=== PATIENT | male | born 1960 | race Caucasian/White ===

== ENCOUNTER 2017-08-15 12:27 | Inpatient (IN) | payer OTHER ==
[~2017-08-15] VITALS: Ht 172.7 cm; Wt 85.0 kg
[~2017-08-15 12:27] MED LIST: AMARYL4 MG PO; AMBIEN 10 MG TA10 MG PO; AMBIEN 5 MG TABL5 M1 PO; AUGMENTIN 875875 MG PO; BENZONATATE200 MG PO; CALCIUM CITRAT1 EA14 PO; CARAFATE 1 GM TA1 G1 GT; COZAAR 50 MG TA50 MG PO; DUONEB 2.5-0.5 M3 ML INH; GLUCOPHAGE1000 MG PO; HUMALOG100 UNIT/2 SQ; IMURAN 50MG TAB50 M1 PO; KLOR-CON 10 ER10 MEQ PO; LEVEMIR SUBQ; LEXAPRO20 MG PO; NEXIUM40 MG PO; PREDNISONE 10 M10 M1 PO; PREDNISONE 10 M10 MG PO; PROMETHAZI6.25 MG/5 PO; PROTONIX 20 MG20 M1 PO; PROTONIX40 M1 PO; SINGULAIR 10 MG10 M1 PO; SYMBICORT160 MCG/4.; TAMIFLU75 MG PO; TRAZODONE HCL100 MG PO; VENTOLIN HFA 1818 GM INH; ZYBAN150 MG PO
[2017-08-15 12:44] VITALS: BP 128/78
[2017-08-15 13:36] LABS: ABSOLUTE MONOCYTES 0.6 thou/uL (0.0-1.2); BASOPHILS 0.9 %; HEMATOCRIT 38.8 % (42.0-52.0); HEMOGLOBIN 13.6 gm/dL (14.0-18.0); MCH 28.2 pg (26.0-34.0); MCHC 35.1 g/dL (28.0-37.0); MCV 80.4 fL (80.0-100.0); MONOCYTES 15.6 %; MPV 10.8 fl. (7.2-11.1); NUCLEATED RBCS 0 /100WBC; PLATELET COUNT* 100 thou/uL (150-400); POLYS 55.5 %; RBC 4.83 mil/uL (4.50-6.00); WBC 3.7 thou/uL (4.0-11.0)
[2017-08-15 13:44] LABS: CALCIUM 8.5 mg/dL (8.5-10.1); CREATININE 1.3 mg/dL (0.6-1.3); POTASSIUM 4.3 mmol/L (3.5-5.1)
[2017-08-15 13:48] LABS: ALBUMIN 3.5 g/dL (3.4-5.0); TOTAL BILIRUBIN 0.8 mg/dL (<0.1-1.0); TOTAL PROTEIN 7.7 g/dL (6.4-8.2)
[2017-08-15 13:50] LABS: INFLUENZA A ANTIGEN None Detected (None Detect); INFLUENZA B ANTIGEN None Detected (None Detect)
[2017-08-15 15:36] LABS: APTT 33.7 Seconds (25.0-31.3); INR 1.2; PROTIME 11.2 Seconds (9.20-11.50)
[2017-08-15 16:32] VITALS: BP 138/78
[2017-08-15 16:33] LABS: URINE BILIRUBIN NEGATIVE (Negative); URINE BLOOD TRACE (Negative); URINE CLARITY CLEAR; URINE COLOR YELLOW; URINE GLUCOSE-RANDOM NEGATIVE (Negative); URINE KETONES TRACE (Negative); URINE LEUKOCYTES-REFLEX NEGATIVE (Negative); URINE NITRITE-REFLEX NEGATIVE (Negative); URINE PROTEIN 1+ (Negative); URINE SPECIFIC GRAVITY <= 1.005 (1.005-1.030); URINE UROBILINOGEN 0.2 E.U./dl (0.2-1.0)
[2017-08-15 17:00] VITALS: BP 159/69
[2017-08-15] MEDS ORDERED: KLOR-CON 1010 MEQ PO (17:44)
[2017-08-15] MEDS ORDERED: CLONAZEPAM 1 MG1 M1 PO (17:44)
[2017-08-15 17:45] VITALS: BP 145/81
[2017-08-15] MEDS ORDERED: WELLBUTRIN SR150 MG PO (17:45)
[2017-08-15] MEDS ORDERED: CELEXA20 MG PO (17:45)
[2017-08-15] MEDS ORDERED: SYMBICORT160 MCG/4. INH (17:46)
[2017-08-15] MEDS ORDERED: TRAMADOL 50 MG50 MG PO (17:47)
[2017-08-15] MEDS ORDERED: ALEVE220 MG PO (17:48)
[2017-08-15] MEDS ORDERED: ZANAFLEX4 MG PO (17:48)
[2017-08-15] MEDS ORDERED: HUMALOG KW100 UNIT/1 SUBQ (17:49)
[2017-08-15] MEDS ORDERED: MUCINEX600 MG PO (17:50)
[2017-08-15] MEDS ORDERED: ATACAND16 MG PO (17:50)
--- NOTE | 2017-08-15 18:30 | NUR ---
PT ADMITTED FROM ED WITH PNA AND GASTROENTERITIS. PT REPORTS FEVER AND CHILLS FOR A WEEK. PT HAS BEEN UNDER TREATMENT FOR COLITIS FROM PRIMARY CARE DOCTOR. PT SOA WITH EXERTION, HX PULMONARY FIBROSIS AND COPD. RESPIRATION EVEN AND UNLABORED AT REST, LUNGS COARSE THROUGHOUT, LOOSE PRODUCTIVE COUGH. O2 SAT MID 90'S RA. SINUS TACH ON MONITOR. HYPERACTIVE BOWEL SOUNDS. PT RECEIVING 3L NS BOLUS AT ADMIT. PT WITH WHOLE BODY TREMORS. PT REPORTS CHILLS. PT ORIENTED TO ROOM, ABLE TO MAKE NEEDS KNOWN. PT UP WITH SBA, UNSTEADY GAIT. CALL LIGHT IN REACH.
[2017-08-15 20:00] VITALS: BP 123/64
[2017-08-15 23:26] VITALS: BP 147/61
--- NOTE | 2017-08-16 03:41 | NUR ---
PT ALERT ORIENTED. BREATH SOUNDS COURSE. ON RA. PT WEARING HOME CPAP. NS AT 100MLS/HR. TELEMETRY SHOWS SR. WILL CONTINUE TO MONITOR.
[2017-08-16 04:00] VITALS: BP 133/76
[2017-08-16 09:30] VITALS: BP 147/66
[2017-08-16 11:00] VITALS: BP 162/71
[2017-08-16 13:40] LABS: ABSOLUTE LYMPHOCYTES 0.7 thou/uL (0.8-5.3); ABSOLUTE MONOCYTES 0.3 thou/uL (0.0-1.2); ABSOLUTE NEUTROPHILS 1.7 thou/uL (1.6-8.1); BASOPHILS 0.6 %; LYMPHOCYTES 26.5 %; MCH 28.5 pg (26.0-34.0); MCHC 35.7 g/dL (28.0-37.0); MCV 79.8 fL (80.0-100.0); NUCLEATED RBCS 0 /100WBC; PLATELET COUNT* 64 thou/uL (150-400); POLYS 60.9 %; RBC 3.89 mil/uL (4.50-6.00); WBC 2.8 thou/uL (4.0-11.0)
[2017-08-16 13:41] LABS: HEMOGLOBIN 11.1 gm/dL (14.0-18.0)
--- NOTE | 2017-08-16 13:43 | NUR ---
ASSUMED PT CARE AT 0700 PT IS ALERT AND ORIENTED X 4 PT IS UP AD ROGER PT IS NOT A FALL RISK, PT DENEIS PAIN OR SOA ON RA, PT IS SR-ST ON THE MONITOR, PT BLOOD PRESSURE ELEVATED TALKED WITH PHYSICIAN WHO RESTARTED HOME MEDS, CALLED PHYSCIAN ABOUT HYDRALAZINE AND ANTIBIOTICS AWAITING CALLBACK, WILL CONTINUE TO MONITOR
[2017-08-16 13:47] LABS: CALCIUM 7.8 mg/dL (8.5-10.1); CREATININE 0.9 mg/dL (0.6-1.3); MAGNESIUM 1.2 mg/dL (1.8-2.4); POTASSIUM 3.8 mmol/L (3.5-5.1)
[2017-08-16 14:12] LABS: ALBUMIN 2.8 g/dL (3.4-5.0); CALCIUM 7.6 mg/dL (8.5-10.1); CREATININE 0.9 mg/dL (0.6-1.3); POTASSIUM 3.9 mmol/L (3.5-5.1); TOTAL BILIRUBIN 0.4 mg/dL (<0.1-1.0); TOTAL PROTEIN 5.9 g/dL (6.4-8.2)
[2017-08-16 16:00] VITALS: BP 146/71
[2017-08-16 20:00] VITALS: BP 150/67
[2017-08-17 00:23] VITALS: BP 152/68
[2017-08-17 04:13] VITALS: BP 132/72
--- NOTE | 2017-08-17 04:52 | NUR ---
PT ALERT ORIENTED. CHILLS AND SHAKING AT TIMES. UP AD ROGER TO BR. TELEMETRY SHOWS SR/ST. ON RA DAYS. CPAP FROM HOME HS. NS AT 80MLS/HR. WILL CONTINUE TO MONITOR.
[2017-08-17 07:50] VITALS: BP 121/67
[2017-08-17 11:46] VITALS: BP 122/62
--- NOTE | 2017-08-17 12:17 | NUR ---
CM ASSESSMENT: Pt is A&O. Resides at home with his . Independent with ADLs. Pt states that he has a cane and wc at home that he can use if needed. Pt uses a home CPAP and o2, provided through [facility]. No hx of HH or SNF. Goal is to return home once medically stable for dc.
--- NOTE | 2017-08-17 15:10 | NUR ---
RECEIVED REPORT AND ASSUMED CARE AT 0730. VSS. CARDIAC MONITOING IN PLACE. PT DENIES ANY COMPLAINTS OF PAIN. ASSESSMENT COMPLETED CHARTED. DISCUSSED PLAN OF CARE WITH PT, VERBALIZED UNDERSTANDING. PT ON RA DURING THE DAY, PT USES C-PAP AT NOC AND WHILE NAPPING. PT UP AD ROGER IN ROOM. BED IN LOWEST POSITION, CALL LIGHT WITHIN REACH. WILL CONTIRNUE TO MONITOR FOR REMAINDER OF THE SHIFT.
--- NOTE | 2017-08-17 15:44 | NUR ---
PT INFORMED TRANSFERING TO [address] [place] [address] ROOM 316. CALLED AND GAVE REPORT TO NURSE ASSUMING CARE. PT BELONGINGS COLLECTED AND MOVED WITH PT TO NEW ROOM.
--- NOTE | 2017-08-17 19:03 | NUR ---
PATIENT TO ROOM 316 THIS AFTERNOON. A/O, DENIES PAIN, ANXIOUS, REPORTS THAT IT IS MOST LIKELY DUE TO CHRONIC STEROID USE. BLOOD SUGAR OF 95, TREATED WITH INSULIN. LOW MAGNESIUM TREATED WTIH ORAL MAGNESIUM. UP AD ROGER, CONT ISO PRECAUTION FOR PENDING C. DIFF, NO BM SINCE TRANSFER, HAT IN TOILET FOR COLLECTION. AGREE WITH PRIOR ASSESSMENT AND DOCUMENTATION.
[2017-08-18 00:14] VITALS: BP 165/76
[2017-08-18 04:54] LABS: HEMATOCRIT 30.7 % (42.0-52.0); HEMOGLOBIN 11.1 gm/dL (14.0-18.0); MCH 28.5 pg (26.0-34.0); MCHC 36.3 g/dL (28.0-37.0); MCV 78.6 fL (80.0-100.0); RBC 3.9 mil/uL (4.50-6.00); RDW-CV 14.1 % (10.5-14.5); WBC 2.3 thou/uL (4.0-11.0)
[2017-08-18 05:21] LABS: CALCIUM 7.9 mg/dL (8.5-10.1); CREATININE 0.9 mg/dL (0.6-1.3); MAGNESIUM 1.4 mg/dL (1.8-2.4); POTASSIUM 4.4 mmol/L (3.5-5.1)
[2017-08-18 08:00] VITALS: BP 126/73
[2017-08-18 15:23] VITALS: BP 117/60
--- NOTE | 2017-08-18 18:32 | NUR ---
RESUMED CARE THIS AM. SARIAH MEDS/CARES WELL, UP AD ROGER, DENIES PAIN. VITAL SIGNS STABLE, EVENING DOSE OF INSULIN HELD DUE TO BLOOD SUGAR OF 71. PROGRESSING WELL TOWARD GOALS, CALL LIGHT IN REACH, C. DIFF STILL "PENDING", ISO CONTINUED, CONT POC.
[2017-08-18 23:21] VITALS: BP 107/59
--- NOTE | 2017-08-19 06:06 | NUR ---
ASSESSMENT COMPLETE. PT SLEPT THROUGH THE NIGHT WITHOUT ANY CONCERNS. PT DENIES PAIN AND N/V. PT IS ON ROOM AIR WITH [place] SATS, HOME CPAP AT . PT HAS IV, SALINE LOCKED. PT HAS STEADY GAIT AND IS UP AD ROGER. CDIFF CAME BACK NEGATIVE. SEE ASSESSMENT AND VITALS FOR OTHER DETAILS. CALL LIGHT WITHIN REACH, WILL CONTINUE PLAN OF CARE
[2017-08-19 07:50] VITALS: BP 142/78
[2017-08-19] MEDS ORDERED: CEFDINIR300 MG PO (11:15)
[2017-08-19] MEDS ORDERED: AZITHROMYCIN500 MG PO (11:15)
[2017-08-19 12:07] VITALS: BP 142/78
--- NOTE | 2017-08-19 12:30 | NUR ---
PATIENT DISCHARGED TO HOME. DISCHARGE PAPERS REVIEWED AND SIGNED. PRESCRIPTIONS AND INFORMATION SHEETS GIVEN. IV REMOVED. PATIENT REQUESTED DISC FOR [facility] FOLLOW-UP, RADIOLOGY SENDING TO THE CLOUD. PATIENT DENIES ANY FURTHER NEEDS. PATIENT TAKEN BY WHEELCHAIR TO EXIT. LEFT WITH .
== END 2017-08-19 12:30 | disposition home or self-care (01) | DRG 871 ==
LOC: M.ERS 12:27 → M.3W 16:03 → M.TBA-ER 16:03 → M.2W 16:03 → M.3W 08-17 15:33
PROVIDERS: Internal Medicine; Nurse Practitioner Family; ADMIT Internal Medicine
DX: A41.9 Sepsis, unspecified organism (principal); J69.0 Pneumonitis due to inhalation of food and vomit; J44.0 Chronic obstructive pulmonary disease with (acute) lower respiratory infection; F17.210 Nicotine dependence, cigarettes, uncomplicated; J84.10 Pulmonary fibrosis, unspecified; K52.9 Noninfective gastroenteritis and colitis, unspecified; K21.9 Gastro-esophageal reflux disease without esophagitis; E11.40 Type 2 diabetes mellitus with diabetic neuropathy, unspecified; Z79.4 Long term (current) use of insulin; Z79.899 Other long term (current) drug therapy; Z91.040 Latex allergy status; Z88.1 Allergy status to other antibiotic agents

== ENCOUNTER 2021-01-17 22:53 | Inpatient (IN) | payer OTHER ==
[~2021-01-17] VITALS: Ht 175.3 cm; Wt 84.6 kg
[~2021-01-17 22:53] MED LIST changes: +ALEVE220 MG PO; +ATACAND16 MG PO; +AZITHROMYCIN500 MG PO; +CEFDINIR300 MG PO; +CELEXA20 MG PO; +CLONAZEPAM 1 MG1 M1 PO; +HUMALOG KW100 UNIT/1 SUBQ; +KLOR-CON 1010 MEQ PO; +LEVEMIR FL100 UNIT/2 SUBQ; -LEVEMIR SUBQ; +MUCINEX600 MG PO; +SYMBICORT160 MCG/4. INH; +TRAMADOL 50 MG50 MG PO; +WELLBUTRIN SR150 MG PO; +ZANAFLEX4 MG PO
[2021-01-17 23:01] VITALS: BP 168/77
[2021-01-17 23:49] LABS: ABSOLUTE LYMPHOCYTES 0.9 thou/uL (0.8-5.3); ABSOLUTE MONOCYTES 0.5 thou/uL (0.0-1.2); ABSOLUTE NEUTROPHILS 3.2 thou/uL (1.6-8.1); BASOPHILS 0.4 %; EOSINOPHILS 0.4 %; HEMATOCRIT 31.8 % (42.0-52.0); HEMOGLOBIN 11.2 gm/dL (14.0-18.0); LYMPHOCYTES 18.6 %; MCH 28.8 pg (26.0-34.0); MCHC 35.4 g/dL (28.0-37.0); MCV 81.3 fL (80.0-100.0); MONOCYTES 11.7 %; MPV 9.6 fl. (7.2-11.1); NUCLEATED RBCS 0 /100WBC; PLATELET COUNT* 98 thou/uL (150-400); POLYS 68.9 %; RBC 3.91 mil/uL (4.50-6.00); WBC 4.7 thou/uL (4.0-11.0)
[2021-01-18 00:02] LABS: INR 1.3; PROTIME 13.5 Seconds (9.20-11.50)
[2021-01-18 00:08] LABS: CALCIUM 7.8 mg/dL (8.5-10.1); CREATININE 1.3 mg/dL (0.6-1.3); POTASSIUM 4.1 mmol/L (3.5-5.1)
[2021-01-18 00:23] LABS: ALBUMIN 3.2 g/dL (3.4-5.0); MAGNESIUM 1.4 mg/dL (1.8-2.4); TOTAL BILIRUBIN 0.9 mg/dL (<0.1-1.0); TOTAL PROTEIN 6.9 g/dL (6.4-8.2)
[2021-01-18 03:10] VITALS: BP 138/70
[2021-01-18 03:14] VITALS: BP 157/72
[2021-01-18] MEDS ORDERED: WARFARIN SODIUM10 MG PO (06:04)
[2021-01-18 08:00] VITALS: BP 162/79
--- NOTE | 2021-01-18 09:45 | EKG ---
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1960 Requested By: Mallory Bangura Order Number: [id number] MD: Bruce Garvey Measurements Intervals [place] Rate: 101 P: 38 IA: 139 QRS: -15 QRSD: 130 T: 50 QT: 377 QTc: 489 Interpretive Statements Sinus tachycardia Right bundle branch block Baseline wander in lead(s) V4 Compared to ECG 10/31/2014 19:23:49 Right bundle-branch block now present Incomplete right bundle-branch block no longer present Electronically Signed On 01-18-2021 9:45:22 CDT by Bruce Garvey [email or web address] <ELECTRONICALLY SIGNED> By: Bruce Garvey MD, [facility] 01/18/21 0945 07 07 Bruce Garvey MD, [facility] /EPI
[2021-01-18 10:48] LABS: HEMOGLOBIN 11.2 gm/dL (14.0-18.0); MCH 28.8 pg (26.0-34.0); MCHC 35.1 g/dL (28.0-37.0); MCV 82.1 fL (80.0-100.0); MPV 9.5 fl. (7.2-11.1); RBC 3.89 mil/uL (4.50-6.00); RDW-CV 14.3 % (10.5-14.5); WBC 2.5 thou/uL (4.0-11.0)
[2021-01-18 10:55] LABS: CALCIUM 7.7 mg/dL (8.5-10.1); CREATININE 1.5 mg/dL (0.6-1.3); POTASSIUM 4.4 mmol/L (3.5-5.1)
[2021-01-18 12:30] VITALS: BP 139/77
[2021-01-18 15:53] VITALS: BP 116/57
[2021-01-18 19:55] VITALS: BP 140/60
[2021-01-19 00:21] VITALS: BP 123/53; BP 151/86
[2021-01-19 04:26] VITALS: BP 126/72
[2021-01-19 05:21] LABS: HEMATOCRIT 26.9 % (42.0-52.0); HEMOGLOBIN 9.7 gm/dL (14.0-18.0); MCH 29.1 pg (26.0-34.0); MCHC 35.9 g/dL (28.0-37.0); MPV 9.9 fl. (7.2-11.1); RBC 3.32 mil/uL (4.50-6.00); RDW-CV 13.7 % (10.5-14.5)
[2021-01-19 05:28] LABS: ALBUMIN 2.8 g/dL (3.4-5.0); CALCIUM 7.7 mg/dL (8.5-10.1); MAGNESIUM 1.9 mg/dL (1.8-2.4); POTASSIUM 4.7 mmol/L (3.5-5.1); TOTAL BILIRUBIN 0.4 mg/dL (<0.1-1.0); TOTAL PROTEIN 6.3 g/dL (6.4-8.2)
[2021-01-19 08:00] VITALS: BP 143/68
[2021-01-19 08:07] LABS: INFLUENZA A ANTIGEN Negative (Negative); INFLUENZA B ANTIGEN Negative (Negative)
[2021-01-19 12:00] VITALS: BP 172/68
[2021-01-19 16:00] VITALS: BP 170/71
== END 2021-01-19 20:40 | disposition left against medical advice (07) | DRG 177 ==
LOC: M.ERS 22:53 → M.TBA-ER 01-18 02:13 → M.ORTHSURG 01-18 02:13
PROVIDERS: Emergency Medicine; Internal Medicine; ADMIT Internal Medicine; ATTEND Internal Medicine
DX: U07.1 COVID-19 (principal); J15.6 Pneumonia due to other Gram-negative bacteria; E87.1 Hypo-osmolality and hyponatremia; K92.1 Melena; A04.9 Bacterial intestinal infection, unspecified; J96.10 Chronic respiratory failure, unspecified whether with hypoxia or hypercapnia; J84.10 Pulmonary fibrosis, unspecified; K21.9 Gastro-esophageal reflux disease without esophagitis; E11.40 Type 2 diabetes mellitus with diabetic neuropathy, unspecified; J44.9 Chronic obstructive pulmonary disease, unspecified; E83.42 Hypomagnesemia; Z53.21 Procedure and treatment not carried out due to patient leaving prior to being seen by health care provider; Z87.891 Personal history of nicotine dependence; Z79.4 Long term (current) use of insulin; Z79.899 Other long term (current) drug therapy; Z88.1 Allergy status to other antibiotic agents; Z91.040 Latex allergy status